=== PATIENT | male | born 1970 | race Caucasian/White ===

== ENCOUNTER 2022-05-27 08:24 | Day surgery (SDC) | payer BC ==
[2022-05-25 10:12] VITALS: BMI 23.0
[2022-05-27] MEDS ORDERED: PROPOFOL 20 ML ONE ×4 (08:33)
[2022-05-27 11:10] VITALS: TEMP 97.9
[2022-05-27 11:13] VITALS: BP 129/92; PULSE 86
== END 2022-05-27 10:45 | disposition home or self-care (01) ==
LOC: FASU 08:24
PROVIDERS: ATTEND Internal Medicine Gastroenterology
PROC: 0DJD8ZZ Inspection of Lower Intestinal Tract, Via Natural or Artificial Opening Endoscopic (ICD-10-PCS; principal; 2022-05-27 09:02)
DX: Z12.11 Encounter for screening for malignant neoplasm of colon (principal); K57.30 Diverticulosis of large intestine without perforation or abscess without bleeding